=== PATIENT | female | born 1955 | race Caucasian/White ===

== ENCOUNTER 2016-11-04 17:30 | Emergency (ER) | payer BC ==
[~2016-11-04] VITALS: Ht 157.5 cm; Wt 108.7 kg
[2016-11-04 17:40] VITALS: BP 178/103; PULSE 90; RESP 16; TEMP 98; O2SAT 97
[2016-11-04] MEDS ORDERED: TAMO20TA6 PO (17:56)
[2016-11-04] MEDS ORDERED: VENL25TA PO (17:56)
[2016-11-04] MEDS ORDERED: FISHCAP4 PO (17:56)
[2016-11-04] MEDS ORDERED: PRAV40TA2 PO (17:56)
[2016-11-04] MEDS ORDERED: MULT-120 PO (17:56)
[2016-11-04] MEDS ORDERED: LEVO.1 PO (17:56)
[2016-11-04] MEDS ORDERED: BENA40TA PO (17:56)
[2016-11-04] MEDS ORDERED: IBUPROFEN 400 MG TAB PO ONE (18:15)
--- NOTE | 2016-11-04 19:21 | RADHPO ---
EXAM DATE/TIME: 11/04/2016 18:52 [facility] COMPARISON: KNEE LEFT COMPLETE (4VWS), November 04, 2016, 18:56. INDICATIONS : Right knee pain from fall today. MEDICAL HISTORY : None. SURGICAL HISTORY : Total knee replacement, right. ENCOUNTER: Initial ACUITY: 1 day PAIN SCORE: 3/10 LOCATION: Right knee. FINDINGS: Right total arthroplasty. Tibial and femoral components appear well-seated with no radiographic evide nce of loosening. No effusion, fracture or dislocation. CONCLUSION: No acute disease. Earle Gordon MD on November 04, 2016 at 19:20 Board Certified Radiologist. This report was verified electronically.
--- NOTE | 2016-11-04 19:22 | RADHPO ---
EXAM DATE/TIME: 11/04/2016 18:58 [facility] COMPARISON: No previous studies available for comparison. INDICATIONS : Right ankle pain from twist and fall today. MEDICAL HISTORY : Prior right ankle fracture. SURGICAL HISTORY : None. ENCOUNTER: Initial ACUITY: 1 day PAIN SCORE: 2/10 LOCATION: Right ankle. FINDINGS: There is a nonacute well-corticated ossific fragment off the tip of lateral malleolus. Ankle mortise is approximated. No acute fracture or dislocation. Plantar calcaneal spur. Normal bone density. CONCLUSION: No acute disease. Earle Gordon MD on November 04, 2016 at 19:21 Board Certified Radiologist. This report was verified electronically.
--- NOTE | 2016-11-04 19:22 | RADHPO ---
EXAM DATE/TIME: 11/04/2016 18:56 [facility] COMPARISON: KNEE RIGHT COMPLETE (4VWS), November 04, 2016, 18:52. INDICATIONS : Left knee pain from fall today. MEDICAL HISTORY : None. SURGICAL HISTORY : Total knee replacement, left. ENCOUNTER: Initial ACUITY: 1 day PAIN SCORE: 3/10 LOCATION: Left knee. FINDINGS: Left total knee arthroplasty. Tibial and femoral components appear well seated. No fracture or disloc ation. CONCLUSION: No acute disease. Earle Gordon MD on November 04, 2016 at 19:20 Board Certified Radiologist. This report was verified electronically.
--- NOTE | 2016-11-04 19:23 | RADHPO ---
EXAM DATE/TIME: 11/04/2016 19:10 [facility] COMPARISON: No previous studies available for comparison. INDICATIONS : Trauma. Fall. Right frontal swelling. RADIATION DOSE: 57.94 CTDIvol (mGy) MEDICAL HISTORY : Hypertension. SURGICAL HISTORY : Hysterectomy. ENCOUNTER: Initial ACUITY: 1 day PAIN SCALE: 4/10 LOCATION: Right frontal TECHNIQUE: Multiple contiguous axial images were obtained of the head. Using automated exposure control and adj ustment of the mA and/or kV according to patient size, radiation dose was kept as low as reasonably a chievable to obtain optimal diagnostic quality images. FINDINGS: Right supraorbital/frontal scalp hematoma. No hemorrhage, acute infarct, or mass. Ventricles and cist erns are of normal size and configuration. No fractures. CONCLUSION: Scalp hematoma. Earle Gordon MD on November 04, 2016 at 19:21 Board Certified Radiologist. This report was verified electronically.
--- NOTE | 2016-11-04 19:50 | PD ---
HPI Chief Complaint: Head Injury Time Seen by Provider: 18:01 Travel History International Travel<30 days: No Contact w/Intl Traveler<30days: No Traveled to known affect area: No History of Present Illness HPI Patient is a 61-year-old female comes in after she tripped and fell and hit her head. She says she stepped off the curb wrong and she fell onto her forehead. She did try to brace herself, but she says it happened so fast she was not very successful. She denies any loss of consciousness. She has swelling over her right side of her forehead. She completed of some pain to her knees. She says she was able to get up and walk right away. She denies any dizziness or blurred vision. She denies nausea or vomiting. She says she has a slight headache. PFSH Past Medical History Anxiety: Yes Depression: Yes Cardiovascular Problems: Yes (htn on meds) High Cholesterol: Yes Hypertension: Yes Thyroid Disease: Yes ?: Not Past Surgical History Hysterectomy: Yes Social History Alcohol Use: Yes (SOCIALLY) Tobacco Use: No Substance Use: No Allergies-Medications (Allergen,Severity, Reaction): Coded Allergies: No Known Allergies (Unverified , 11/04/16) Reported Meds & Prescriptions Reported Meds & Active Scripts Active Reported Multivitamin Women (Multiple Vitamins W/ Minerals) 1 Tab Tab 1 Tab PO DAILY Fish Oil + D3 (Fish Oil-Cholecalciferol) 1,200-1,000 Mg-Unit Cap 1 Cap PO DAILY Effexor (Venlafaxine HCl) 25 Mg Tab Unknown Dose PO Q12H Tamoxifen (Tamoxifen Citrate) 20 Mg Tab 20 Mg PO DAILY Benazepril (Benazepril HCl) 40 Mg Tab 40 Mg PO DAILY Pravastatin 40 Mg Tab 40 Mg PO DAILY Synthroid (Levothyroxine Sodium) 100 Mcg Tab 100 Mcg PO DAILY Review of Systems Except as stated in HPI: all other systems reviewed are Neg General / Constitutional: No: Fever, Chills Eyes: No: Blurred Vision HENT: Positive: Headaches, No: Lightheadedness Cardiovascular: No: Chest Pain or Discomfort Respiratory: No: Shortness of Breath Gastrointestinal: No: Nausea, Vomiting Musculoskeletal: Positive: Pain Skin: No Change in Pigmentation Neurologic: No: Weakness, Dizziness, Syncope Physical Exam Narrative GENERAL: Awake and alert in no acute distress. SKIN: Warm and dry. Abrasions to the right hand. HEAD: Atraumatic. Normocephalic. Large hematoma to the right side of the forehead. No tenderness to palpation. EYES: Pupils equal and round. No scleral icterus. Extraocular movements intact. ENT: Mucous membranes pink and moist. NECK: Trachea midline. No JVD. CARDIOVASCULAR: Regular rate and rhythm. No murmur appreciated. RESPIRATORY: No accessory muscle use. Clear to auscultation. Breath sounds equal bilaterally. MUSCULOSKELETAL: No obvious deformities. No clubbing. No cyanosis. No edema. Crepitus with flexion and extension of both knees. No tenderness to palpation of either patella. Tenderness to palpation of the medial malleolus. No tenderness to bilateral shoulders, elbows, wrists. NEUROLOGICAL: Awake and alert. No obvious cranial nerve deficits. Motor grossly within normal limits. Normal speech. PSYCHIATRIC: Appropriate mood and affect; insight and judgment normal. Data Data Last Documented VS Vital Signs Date Time Temp Pulse Resp B/P Pulse Ox O2 Delivery O2 Flow Rate FiO2 11/04/16 20:15 62 20 168/89 95 11/04/16 17:[address] Brain W/O Iv Contrast(Rout) (11/04/16 ) Knee, Complete (4vws) (11/04/16 ) Ankle, Complete ([id number]) (11/04/16 ) Knee, Complete (4vws) (11/04/16 ) Ibuprofen (Motrin) (11/04/16 18:15) MDM Medical Decision Making Medical Screen Exam Complete: Yes Emergency Medical Condition: Yes Differential Diagnosis Skull fracture versus hematoma versus ICH versus ankle fracture versus patellar fracture Narrative Course Patient is a 61-year-old female comes in after a fall today. Exam shows large hematoma to the right side of the forehead. CT head ordered shows no acute findings. X-rays of the knees and ankle show no acute findings. Patient refused x-ray of her hand. She was given ibuprofen for headache. Patient advised of warning signs for head injury and when to return to the emergency department. She is comfortable with discharge at this time. Advised follow-up with her doctor. Diagnosis Primary Impression: Fall Qualified Code: W19.XXXA - Fall, initial encounter Additional Impression: Hematoma Patient Instructions: General Instructions, Head Injury (ED) Additional Instructions: Follow up with your doctor. Take Tylenol or Ibuprofen as needed for pain. Return to the ED as needed for any worsening symptoms. Disposition: 01 DISCHARGE HOME Condition: Stable Nita Aceves MD Nov 04, 2016 19:49
[2016-11-04 20:15] VITALS: BP 168/89
== END 2016-11-04 20:17 | disposition home or self-care (01) ==
LOC: PHED 17:30
DX: S00.83XA Contusion of other part of head, initial encounter (principal); E78.00 Pure hypercholesterolemia, unspecified; I10 Essential (primary) hypertension; W10.1XXA Fall (on)(from) sidewalk curb, initial encounter; Y93.9 Activity, unspecified; Y99.9 Unspecified external cause status
CPT/HCPCS: 70450; 73564; 73610